=== PATIENT | male | born 1980 | race Caucasian/White ===

== ENCOUNTER 2020-10-15 23:28 | Emergency (ER) | payer OTHER ==
[2020-10-15] MEDS ORDERED: ONDANSETRON ODT 4 MG TABLET TL STA (23:51)
[2020-10-15] MEDS ORDERED: SIMETHICONE CHEW 80 MG TABLET PO STA (23:51)
--- NOTE | 2020-10-15 23:54 | ED Physician Documentation ---
History of Present Illness - Stated complaint Stated Complaint: ABD PX,NAUSEA - Chief complaint Chief Complaint: Abd Pain - History obtained from History obtained from: Patient - Additonal information Additional information: 39-year-old man with no personal past medical history presents with sudden onset abdominal pain around 1800 today with bloating sensation, generalized, radiating to the left lower quadrant and back, worse with the bumpy car ride, associated with nausea but no diarrhea or vomiting. He did have a very small bowel movement today without blood. Does state that he has been eating an unhealthy diet and had [employer] tonight prior to symptom onset. Did have some relief with Pepto-Bismol but then got worse again so he came into the hospital. Denies fevers, chest pain, shortness of breath, urinary sx Review of Systems Ten Systems: 10 systems reviewed and negative Constitutional: denies: Fever, Chills GI: reports: Abdominal Pain, Nausea, Constipation. denies: Vomiting, Diarrhea : denies: Dysuria PD PAST MEDICAL HISTORY - Past Medical History Past Medical History: No - Past Surgical History Past Surgical History: No - Present Medications Home Medications: Ambulatory Orders Medication Instructions Recorded Confirmed Cetirizine [ZyrTEC] 10 mg PO ONCE 10/15/20 10/15/20 - Allergies Allergies/Adverse Reactions: Allergies Allergy/AdvReac Type Severity Reaction Status Date / Time No Known Drug Allergies Allergy Verified 10/15/20 23:38 - Social History Does the pt smoke?: No Smoking Status: Never smoker Does the pt drink ETOH?: No Does the pt have substance abuse?: Yes Substance Use and Type: Marijuana - Immunizations Immunizations are current?: Yes - POLST Patient has POLST: No PD ED PE NORMAL - Vitals Vital signs reviewed: Yes - General General: Alert and oriented X 3, No acute distress, Well developed/nourished - HEENT HEENT: Atraumatic, PERRL, EOMI - Neck Neck: Supple, no meningeal sign - Cardiac Cardiac: RRR - Respiratory Respiratory: No respiratory distress, Clear bilaterally - Abdomen Abdomen: Non tender, Non distended, Other (discomfort diffusely to palpation) - Rectal Rectal: Other (RN managing member. normal prostate. brown stool on EN. ) - Back Back: No CVA TTP - Derm Derm: Normal color Results - Vitals Vitals: Vital Signs - 24 hr 10/15/20 23:34 Temperature 35.9 C L Heart Rate 84 Respiratory 18 Rate Blood Pressure 126/74 O2 Saturation 99 Oxygen O2 Source Room air - Labs Labs: Microbiology 10/15/20 23:50 Occult Blood - Final Stool Laboratory Tests 10/15/20 10/16/20 10/16/20 11:31 00:02 00:02 WBC 14.3 H RBC 4.99 Hgb 15.8 Hct 46.0 MCV 92.2 MCH 31.7 H MCHC 34.3 RDW 11.8 L Plt Count 270 MPV 10.5 Neut # (Auto) 11.9 H Lymph # (Auto) 1.5 Roberts # (Auto) 0.7 Eos # (Auto) 0.1 Baso # (Auto) 0.1 Absolute Nucleated RBC 0.00 Nucleated RBC % 0.0 Sodium 137 Potassium 3.6 Chloride 100 L Carbon Dioxide 24 Anion Gap 13.0 BUN 18 Creatinine 1.0 Estimated GFR (MDRD) 83 L Glucose 209 H Calcium 9.0 Total Bilirubin 0.8 AST 22 ALT 24 Alkaline Phosphatase 83 Total Protein 7.8 Albumin 4.8 Globulin 3.0 Albumin/Globulin Ratio 1.6 Lipase 22 Urine Color YELLOW Urine Clarity CLEAR Urine pH 6.5 Ur Specific [place] 1.025 Urine Protein TRACE Urine Glucose (UA) NEGATIVE Urine Ketones 15 H Urine Occult Blood NEGATIVE Urine Nitrite NEGATIVE Urine Bilirubin NEGATIVE Urine Urobilinogen 1 (NORMAL) Ur Leukocyte Esterase NEGATIVE Ur Microscopic Review NOT INDICATED Urine Culture Comments NOT INDICATED PD MEDICAL DECISION MAKING - ED course ED course: 39-year-old man presents with mild to moderate generalized cramping bloating abdominal pain, somewhat improved with Pepto-Bismol but persisting here in the emergency department. His vital signs and physical exam are benign. Will obtain screening lab work, treat symptomatically and reevaluate. Abdominal pain significantly improved, he is now stating it is a 2 out of 10. I discussed with him that his white blood cell count is elevated and that we can do a CT to evaluate for diverticulitis or other etiology, however he would prefer to follow-up as an outpatient. Discussed that he should follow up with his primary doctor and return to the emergency department if he has any fever, new or worsening symptoms or other concerns. Departure - Departure Disposition: 01 Home, Self Care Clinical Impression: Abdominal pain, Leukocytosis Condition: Good Instructions: ED Abdominal Pain Unkn Cause Comments: You were seen in the emergency department for abdominal pain. Your vital signs and physical exam did not have any concerning features. Your lab work was normal with the exception of a elevated white blood cell count, a nonspecific finding. Please return to the emergency department if you have any new or worsening symptoms or other concerns. Return specifically if you have temperature higher than 100.4. Follow-up with your primary doctor this week.
[2020-10-16 00:10] LABS: GLUCOSE, URINE (UA) NEGATIVE (NEGATIVE); KETONES,URINE (UA) 15 mg/dL (NEGATIVE); LEUKOCYTE ESTERASE, URINE NEGATIVE (NEGATIVE); NITRITE,URINE NEGATIVE (NEGATIVE); OCCULT BLOOD,URINE NEGATIVE (NEGATIVE); PH,URINE 6.5 PH (5.0-7.5); PROTEIN,URINE TRACE mg/dL (NEGATIVE); UROBILINOGEN,URINE 1 (NORMAL) E.U./dL (NORMAL)
[2020-10-16 00:10] LABS: BASOPHILS # (AUTO) 0.1 10^3/uL (0.0-0.1); BASOPHILS % (AUTO) 0.8 %; EOSINOPHILS # (AUTO) 0.1 10^3/uL (0.0-0.7); EOSINOPHILS % (AUTO) 0.8 %; HGB - HEMOGLOBIN 15.8 g/dL (14.0-18.0); LYMPHOCYTES # (AUTO) 1.5 10^3/uL (1.5-3.5); LYMPHOCYTES % (AUTO) 10.5 %; MEAN CORPUSCULAR HEMOGLOBIN 31.7 pg (27.0-31.0); MEAN CORPUSCULAR HGB CONC 34.3 g/dL (32.0-36.0); MEAN CORPUSCULAR VOLUME 92.2 fL (80.0-94.0); MEAN PLATELET VOLUME 10.5 fL (7.4-11.4); MONOCYTES # (AUTO) 0.7 10^3/uL (0.0-1.0); MONOCYTES % (AUTO) 4.6 %; NEUTROPHILS # (AUTO) 11.9 10^3/uL (1.5-6.6); NEUTROPHILS % (AUTO) 82.9 %; PLT - PLATELET COUNT 270 10^3/uL (130-450); RED BLOOD COUNT 4.99 10^6/uL (4.70-6.10); RED CELL DISTRIBUTION WIDTH 11.8 % (12.0-15.0); WHITE BLOOD COUNT 14.3 x10^3/uL (4.8-10.8)
[2020-10-16 00:17] LABS: BILIRUBIN,URINE NEGATIVE (NEGATIVE); CLARITY,URINE CLEAR (CLEAR); ICTOTEST,URINE NEGATIVE
[2020-10-16 00:38] LABS: ALBUMIN 4.8 g/dL (3.2-5.5); ALBUMIN/GLOBULIN RATIO 1.6 (1.0-2.2); BILIRUBIN,TOTAL 0.8 mg/dL (0.2-1.0); POTASSIUM 3.6 mmol/L (3.5-5.0); TOTAL PROTEIN 7.8 g/dL (6.7-8.2)
[2020-10-16 00:59] VITALS: BP 130/89
== END 2020-10-16 00:58 | disposition home or self-care (01) ==
LOC: ED 23:28
DX: R10.84 Generalized abdominal pain (principal); R11.0 Nausea; D72.829 Elevated white blood cell count, unspecified
CPT/HCPCS: 36415; 80053; 81003; 82272; 83690; 85025; 99283; 99284; A9270; Q0162; 81001; 82274; 87086

== ENCOUNTER 2023-01-25 11:50 | Outpatient (CLI) | payer OTHER ==
--- NOTE | 2023-01-26 08:31 | XRAY Report ---
PROCEDURE: Lumbar Spine 2 View INDICATIONS: PAIN IN THORACIC,LOW BACK PAIN,CERVICALGIA` TECHNIQUE: 2 views of the lumbar spine were acquired. COMPARISON: None. FINDINGS: Bones: 5 [id number] vertebrae are present. There is normal bony alignment. No vertebral body compression fractures. No suspicious bony lesions. Mild facet arthropathy at L4-L5 and L5-S1. Soft tissues: Overlying bowel gas pattern is normal. No suspicious soft tissue calcifications. IMPRESSION: Mild degenerative facet disease at L4-L5 and L5-S1. Reviewed by: Nancy Rodríguez MD on 01/26/2023 8:30 AM [facility] Approved by: Nancy Rodríguez MD on 01/26/2023 8:30 AM [facility] Station ID: [id number]
--- NOTE | 2023-01-26 08:32 | XRAY Report ---
PROCEDURE: Thoracic Spine 2 View INDICATIONS: PAIN IN THORACIC,LOW BACK PAIN,CERVICALGIA TECHNIQUE: 2 views of the thoracic spine were acquired. COMPARISON: None. FINDINGS: Bones: No fractures or dislocations. No suspicious bony lesions. Mild degenerative disc disease in thoracic spine. 12 pairs of ribs are noted, and appear intact where visualized. Soft tissues: No paravertebral stripe thickening. IMPRESSION: 1. No acute bony abnormality. Mild significant degenerative change. Reviewed by: Nancy Rodríguez MD on 01/26/2023 8:31 AM PST Approved by: Nancy Rodríguez MD on 01/26/2023 8:31 AM [facility] Station ID: [id number]
--- NOTE | 2023-01-26 08:33 | XRAY Report ---
PROCEDURE: Sacrum/Coccyx INDICATIONS: PAIN IN THORACIC,LOW BACK PAIN,CERVICALGIA TECHNIQUE: 2 views of the sacrum and coccyx acquired. COMPARISON: None. FINDINGS: Bones: No fractures or dislocations. No suspicious bony lesions. Soft tissues: Visualized bowel gas pattern is normal. No suspicious soft tissue densities. IMPRESSION: No acute bony abnormality. Reviewed by: Nancy Rodríguez MD on 01/26/2023 8:31 AM PST Approved by: Nancy Rodríguez MD on 01/26/2023 8:31 AM PST Station ID: [id number]
--- NOTE | 2023-01-26 08:40 | XRAY Report ---
PROCEDURE: Cervical Spine 2 View INDICATIONS: PAIN IN THORACIC,LOW BACK PAIN,CERVICALGIA TECHNIQUE: 3 view(s) of the cervical spine were acquired. COMPARISON: None. FINDINGS: Bones: No fractures or dislocations to the T1 level. Straightening of cervical curvature. The later al masses of C1 appear intact on the odontoid view. No suspicious bony lesions. Mild degenerative d isc disease at C4-C5, C5-C6 and C6-C7. Mild bilateral facet arthropathy at C4-C5 and C5-C6. Soft tissues: No prevertebral soft tissue swelling. IMPRESSION: 1. Mild degenerative disc and facet disease in cervical spine. Reviewed by: Nancy Rodríguez MD on 01/26/2023 8:39 AM PST Approved by: Nancy Rodríguez MD on 01/26/2023 8:39 AM PST Station ID: [id number]
== END 2023-01-25 11:51 | disposition home or self-care (01) ==
LOC: DI 11:50
PROVIDERS: ATTEND Naturopath
DX: M47.812 Spondylosis without myelopathy or radiculopathy, cervical region (principal); M50.321 Other cervical disc degeneration at C4-C5 level; M51.34 Other intervertebral disc degeneration, thoracic region; M47.816 Spondylosis without myelopathy or radiculopathy, lumbar region; M47.817 Spondylosis without myelopathy or radiculopathy, lumbosacral region